=== PATIENT | male | born 1965 | race African-American/Black ===

== ENCOUNTER 2017-01-14 19:08 | Emergency (ER) | payer SELFPAY ==
[2017-01-14 19:18] VITALS: BP 159/89; BMI 32.0
[2017-01-14] MEDS ORDERED: XYLOCAINE 2 % (PLAIN) ONE (20:06)
--- NOTE | 2017-01-14 21:17 | DR.GENAD ---
HPI - PCP Primary Care Physician: NFD - Complaint/Symptoms Chief Complaint:: " I stepped on a nail about a hour ago. Took shoe off and sit down and it started hurting my whole foot." - Nurses notes reviewed Nurses Notes Review: Yes - Source History Provided: Patient - Mode of Arrival Mode of Arrival: Ambulatory - Timing Onset of Chief Complaint: 01/14/17 PMH - PMH Past Medical History: No Past Surgical History: Yes Surgical History: Ortho Surgery - Family History History of Family Medical Conditions: Yes Family Medical History: Hypertension - Social History Do you use any recreational Drugs:: No - infectious screening Have you traveled outside the country in the last 6 months?: No PE - Vital Signs Vitals: Temperature 98.5 F Pulse Rate 86 Respiratory Rate 18 Blood Pressure 159/89 O2 Sat by Pulse Oximetry 98 - Discharge Plan Condition: Stable Prescriptions: Acetaminophen W/ Codeine [Tylenol/Codeine #3 300-30 mg] 1 tab PO Q4-6H PRN #15 tab PRN Reason: Pain Cephalexin [Keflex Cap 500 mg] 500 mg PO TID #30 cap Ibuprofen [MOTRIN TAB 600 MG *] 600 mg PO TID PRN #20 tab PRN Reason: Pain/Inflammation - Follow ups/Referrals Follow ups/Referrals: MIRTA MATOS [STAFF PHYSICIAN] - 2 days NFD,None [Primary Care Provider] - 2 days - Instructions Instructions: Puncture Wound, [id number] Additional Instructions: return to ed if worse.
[2017-01-14] MEDS ORDERED: TYLENOL #3 TAB (W/CODEINE) PO ONE ×2 (21:20→21:23)
[2017-01-14] MEDS ORDERED: KEFLEX CAP 500 MG PO ONE ×2 (21:20→21:23)
[2017-01-14] MEDS ORDERED: MOTRIN TAB 600 MG PO ONE ×2 (21:21→21:24)
--- NOTE | 2017-01-15 00:05 | RAD ---
Left foot, three views Indication: Stepped on a nail Comparison: None Findings: No cortical lucency or malalignment of the left foot identified. No soft tissue gas or rad iopaque foreign body identified. Impression: No evidence of acute skeletal abnormality. No soft tissue gas or foreign body identified . Reported By:
== END 2017-01-14 21:37 | disposition home or self-care (01) ==
LOC: ER 19:23
DX: S91.332A Puncture wound without foreign body, left foot, initial encounter (principal); W45.8XXA Other foreign body or object entering through skin, initial encounter
CPT/HCPCS: 73630; 99282; 99283; J2001